=== PATIENT | male | born 1980 | race Hispanic/Latino ===

== ENCOUNTER 2023-04-25 09:21 | Emergency (ER) | payer OTHER ==
[~2023-04-25] VITALS: Ht 175.3 cm; Wt 93.0 kg
[2023-04-25] MEDS ORDERED: MORPHINE 4 MG SYG IVP ONE (10:00)
[2023-04-25] MEDS ORDERED: FAMOTIDINE 20MG VIAL IV ONE (10:00)
[2023-04-25] MEDS ORDERED: LACTATED RINGERS 1000ML 1,000 ML IV ONE (10:00)
[2023-04-25] MEDS ORDERED: METOCLOPRAMIDE 10 MG/2 ML VIAL IVP ONE (10:00)
[2023-04-25 10:26] LABS: HEMATOCRIT 43.7 % (42-54); MEAN CORPUSCULAR HEMOGLOBIN 30.2 pg (27.0-33.0); MEAN CORPUSCULAR HGB CONC 34.3 g/dL (32.0-36.0); MEAN CORPUSCULAR VOLUME 88.1 fL (79-99); RED BLOOD CELL COUNT(AUTO) 4.96 MIL/uL (4.50-6.20); RED CELL DISTRIBUTION WIDTH 12.3 % (11.0-15.5); WHITE BLOOD COUNT (AUTO) 8.9 K/uL (4.8-10.8)
[2023-04-25 10:39] LABS: APPEARANCE,URINE CLEAR (CLEAR); BILIRUBIN,URINE NEGATIVE (NEGATIVE); COLOR,URINE YELLOW (YELLOW); GLUCOSE, URINE (UA) NEGATIVE (NEGATIVE); KETONES,URINE NEGATIVE (NEGATIVE); LEUKOCYTE ESTERASE ,URINE NEGATIVE Leu/uL (NEGATIVE); NITRATE,URINE NEGATIVE (NEGATIVE); OCCULT BLOOD,URINE NEGATIVE (NEGATIVE); PH,URINE 5.5 (5.0-8.0); PROTEIN,URINE 20 mg/dL (NEGATIVE); UROBILINOGEN,URINE 0.2 mg/dL (0.2-1.0)
[2023-04-25 10:48] LABS: ALBUMIN 4.4 g/dL (3.5-5.0); BILIRUBIN,DIRECT 0.1 mg/dL (0.0-0.3); BILIRUBIN,TOTAL 0.6 mg/dL (0.2-1.0); TOTAL PROTEIN, SERUM 8.2 g/dL (6.0-8.3)
[2023-04-25 10:49] LABS: POTASSIUM 4.1 mmol/L (3.5-5.1)
[2023-04-25 10:50] LABS: CREATININE 0.9 mg/dL (0.5-1.5)
[2023-04-25 10:51] LABS: ADD UA MICROSCOPIC YES
[2023-04-25 10:52] LABS: BACTERIA,URINE RARE /HPF (None Seen); MUCUS,URINE MOD LPF (None Seen); SQUAMOUS EPITHELIAL CELL,UR RARE /HPF (0-2)
[2023-04-25] MEDS ORDERED: POLY17PO4 PO (11:27)
[2023-04-25] MEDS ORDERED: METO-296 PO (11:27)
[2023-04-25 11:35] VITALS: BP 137/80; PULSE 88; RESP 20; O2SAT 100
== END 2023-04-25 11:40 | disposition home or self-care (01) ==
LOC: EDH 09:21
DX: K80.50 Calculus of bile duct without cholangitis or cholecystitis without obstruction (principal); E78.00 Pure hypercholesterolemia, unspecified
CPT/HCPCS: 99285; 96374; 76705; 96375; 96361; 80076; 84484; 80048; 83690; 85027; 83605; 81001; 36415; 93005; J7120; J3490; J2270; J2765